=== PATIENT | male | born 1975 | race Asian ===

== ENCOUNTER 2018-10-14 22:13 | Emergency (ER) | payer OTHER ==
[~2018-10-14] VITALS: Ht 152.4 cm; Wt 85.3 kg
[2018-10-14] MEDS ORDERED: IBUPROFEN 600600 M1 PO (23:27)
[2018-10-14] MEDS ORDERED: NORFLEX100 MG PO (23:27)
[2018-10-14] MEDS ORDERED: NORCO 5-325 TA1 EACH PO (23:27)
[2018-10-14] MEDS ORDERED: SENNA-DOCUSATE1 EAC1 PO (23:27)
[2018-10-14 23:58] VITALS: BP 124/88
== END 2018-10-15 | disposition home or self-care (01) ==
LOC: ER 22:13
DX: S80.02XA Contusion of left knee, initial encounter (principal); S20.212A Contusion of left front wall of thorax, initial encounter; S80.211A Abrasion, right knee, initial encounter; V89.2XXA Person injured in unspecified motor-vehicle accident, traffic, initial encounter; Y92.89 Other specified places as the place of occurrence of the external cause; Y93.89 Activity, other specified; Y99.8 Other external cause status